=== PATIENT | female | born 1980 | race Two or more races ===

== ENCOUNTER 2019-06-19 09:53 | Outpatient (CLI) | payer OTHER ==
[2019-06-19 10:31] LABS: *BILIRUBIN,URIN NEGATIVE (NEGATIVE); *BLOOD, URINE 2+ (NEGATIVE); *CLARITY,URINE SLIGHTLY CLOUDY (CLEAR); *COLOR,URINE YELLOW (YELLOW); *KETONES,URINE NEGATIVE (NEGATIVE); *UROBILINOGEN,URINE 0.2 E.U./dl (NORMAL); LEUKOCYTE ESTERASE ,URINE NEGATIVE (NEGATIVE); NITRITE, URINE NEGATIVE (NEGATIVE); PH,URINE 8.5 (5.0-8.0); UGLUCOSE NEGATIVE (NEGATIVE)
[2019-06-19 10:32] LABS: BASOPHILS % (AUTO) 0.8 % (0.0-2.0); EOSINOPHILS # (AUTO) 0.1 K/uL (0.0-0.7); EOSINOPHILS % (AUTO) 1.2 % (0.0-7.0); HEMATOCRIT 30.2 % (31.2-41.9); HEMOGLOBIN 9.3 g/dL (10.9-14.3); LYMPHOCYTES # (AUTO) 1.3 K/uL (20.0-40.0); LYMPHOCYTES % (AUTO) 25.6 % (20.5-51.5); MEAN CORPUSCULAR HEMOGLOBIN 20.9 uug (24.7-32.8); MEAN CORPUSCULAR HGB CONC 31 g/dL (32.3-35.6); MEAN CORPUSCULAR VOLUME 67.6 fL (75.5-95.3); MONOCYTES # (AUTO) 0.3 K/uL (2.0-10.0); MONOCYTES % (AUTO) 5.6 % (0.0-11.0); NEUTROPHILS # (AUTO) 3.4 K/uL (1.8-8.9); NEUTROPHILS % (AUTO) 66.8 % (38.5-71.5); PLATELET COUNT (AUTO) 341 K/uL (179-408); RED BLOOD CELL COUNT(AUTO) 4.46 MIL/uL (3.63-4.92); WHITE BLOOD COUNT (AUTO) 5.1 K/uL (3.8-11.8)
[2019-06-19 10:38] LABS: CREATININE 0.7 mg/dL (0.6-1.3); POTASSIUM 4.1 mmol/L (3.5-5.1)
[2019-06-19 10:40] LABS: BACTERIA,URINE NONE SEEN /HPF (NONE SEEN); RBC,URINE TNTC /HPF (0-3); SQUAMOUS EPITHELIAL CELL,UR FEW /HPF (NONE SEEN); WBC,URINE 0-3 /HPF (0-3)
[2019-06-19 10:44] LABS: BILIRUBIN,TOTAL 0.3 mg/dL (0.2-1.0); TOTAL PROTEIN, SERUM 7.4 g/dL (6.4-8.2)
== END 2019-06-19 23:59 | disposition home or self-care (01) ==
LOC: LAB 09:53
PROVIDERS: ATTEND Internal Medicine
DX: Z01.818 Encounter for other preprocedural examination (principal); M77.11 Lateral epicondylitis, right elbow; M77.12 Lateral epicondylitis, left elbow
CPT/HCPCS: 36415; 85025; 85730; A4663

== ENCOUNTER 2019-06-22 06:30 | Day surgery (SDC) | payer OTHER ==
[2019-06-22 07:14] LABS: *URINE HCG, QUAL NEGATIVE (NEGATIVE)
[2019-06-22] MEDS ORDERED: POLYMYXIN B SULFATE 500,000 UNITS, BACITRACIN 50,000 UNITS, NORMAL SALINE 20 ML MC ONE ×3 (07:30)
[2019-06-22] MEDS ORDERED: BACITRACIN ZINC OINT 15 GM TUBE ONE (07:32)
[2019-06-22] MEDS ORDERED: BUPIVACAINE PF 0.5% 30 ML VIAL ONE (07:32)
[2019-06-22] MEDS ORDERED: KETOROLAC TROMETHAMINE 30 MG INJ IM ONE (08:00)
[2019-06-22] MEDS ORDERED: DEXAMETHASONE SOD PHOSPHATE 4 MG INJ IV ONE (08:00)
[2019-06-22] MEDS ORDERED: PROPOFOL 200 MG/20 ML BOTTLE IV ONE (08:00)
[2019-06-22] MEDS ORDERED: SEVOFLURANE 250 ML BOTTLE IH ONE (08:00)
[2019-06-22] MEDS ORDERED: IV NORMAL SALINE 1000 ML BAG IV ONE (08:00)
[2019-06-22] MEDS ORDERED: LIDOCAINE-MPF 2% 5 ML VIAL MC ONE (08:00)
[2019-06-22] MEDS ORDERED: CEFAZOLIN 1 G VIAL MC ONE (08:00)
[2019-06-22] MEDS ORDERED: MIDAZOLAM HCL 2 MG/2 ML VIAL ONE (08:05)
[2019-06-22] MEDS ORDERED: FENTANYL CITRATE 100 MCG/2 ML AMPUL ONE ×2 (08:06→10:21)
[2019-06-22] MEDS ORDERED: TRAMADOL HCL 50 MG TABLET ONE (11:31)
== END 2019-06-22 12:10 | disposition home or self-care (01) ==
LOC: DS 06:30
PROVIDERS: ATTEND Orthopaedic Surgery
DX: M77.11 Lateral epicondylitis, right elbow (principal); M77.01 Medial epicondylitis, right elbow; D50.9 Iron deficiency anemia, unspecified; K21.9 Gastro-esophageal reflux disease without esophagitis; N39.0 Urinary tract infection, site not specified; F15.90 Other stimulant use, unspecified, uncomplicated; Z82.49 Family history of ischemic heart disease and other diseases of the circulatory system; Z83.3 Family history of diabetes mellitus; Z98.890 Other specified postprocedural states
CPT/HCPCS: 24358; 24359; 84703; 88304; 88311; J0690; J1100; J1885; J2250; J3010; J3490 ×4; J7120; J7030